=== PATIENT | female | born 1955 | race Caucasian/White ===

== ENCOUNTER 2018-03-11 09:44 | Day surgery (SDC) | payer BC ==
[2018-03-07 12:01] VITALS: BMI 20.7
[2018-03-11] MEDS ORDERED: ceFAZolin 1 gm FROZEN Premix 1 GM/50 ML ML IVPB ONE (11:05)
[2018-03-11] MEDS ORDERED: Lidocaine Hydrochloride 10 ML INJ ONE (11:05)
[2018-03-11] MEDS ORDERED: Bupivacaine 0.25% 20 ML INJ IJ ONE (11:05)
[2018-03-11] MEDS ORDERED: HEPARIN-NS 5,000 UNITS/500 ML 5,000 UNIT/500 ML BAG IV ONE (11:06)
[2018-03-11] MEDS ORDERED: Propofol 10 mg/ml Inj (20 ML) ONE (11:20)
[2018-03-11] MEDS ORDERED: Midazolam 2 MG/2 ML VIAL ONE (11:20)
[2018-03-11] MEDS ORDERED: Lidocaine Hydrochloride 5 ML INJ ONE (11:37)
--- NOTE | 2018-03-11 11:58 | CP.SDSHP ---
Same Day Surgery H & P - History Proposed Procedure: Port placement Pre-Op Diagnosis: Breast cancer - Allergies Allergies: Allergies No Known Allergies Allergy (Verified 03/07/18 12:01) - Physical Exam Vital Signs: Vital Signs 03/11/18 09:50 Temperature 97.4 F L Pulse Rate 92 H Respiratory 20 Rate Blood Pressure 156/97 H O2 Sat by Pulse 98 Oximetry Mental Status: Alert & Oriented x3 - Impression Impression: Pt with breast cancer s/p left mastectomy. Plan right IJV port placement. Informed consent obtained. Pt. Evaluated Today:Candidate for Anesthesia & Procedure: Yes (ASA 3 Malampati 3) - Date & Time Date: 03/11/18 Time: 11:00 Short Stay Discharge - Short Stay Discharge Admitting Diagnosis/Reason for Visit: ENCOUNTER FOR ANTINEOPLASTIC CHEMOTHERAPY Disposition: HOME/ ROUTINE
--- NOTE | 2018-03-11 11:59 | PCM.SURG1 ---
Surgeon's Initial Post Op Note - Surgeon's Notes Surgeon: Saul Kim MD Warehouse Delivery Manager: NONE Type of Anesthesia: IV Sedation Pre-Operative Diagnosis: Breast cancer Operative Findings: US showed a patent right IJV Post-Operative Diagnosis: Breast cancer Operation Performed: Port placement Specimen/Specimens Removed: none Estimated Blood Loss: EBL {In ML}: 2 Blood Products Given: N/A Drains Used: No Drains Post-Op Condition: Fair Date of Surgery/Procedure: 03/11/18 Time of Surgery/Procedure: 11:50
[2018-03-11] MEDS ORDERED: HYDROmorphone 0.5 mg/0.5 ml ISec IVP PRN (12:10)
[2018-03-11 13:30] VITALS: BP 160/90; PULSE 88; RESP 16; TEMP 97.8; O2SAT 98
--- NOTE | 2018-03-13 16:41 | RAD ---
Date of service: 03/11/2018 PROCEDURE: Intraoperative Fluoroscopy. HISTORY: Breast cancer FINDINGS: Fluoroscopic assistance was provided for right-sided Port-A-Cath placement. Please refer to the operative report from [facility].
== END 2018-03-11 15:00 | disposition home or self-care (01) ==
LOC: C.CATHLAB 09:44
PROVIDERS: ATTEND Radiology Vascular & Interventional Radiology
DX: Z45.2 Encounter for adjustment and management of vascular access device (principal)
CPT/HCPCS: 36561; 77001; C1788; J0690; J1644; J2250; J2405; J2704; J3010; J7040